=== PATIENT | male | born 1935 | race Caucasian/White ===

== ENCOUNTER 2016-12-24 14:43 | Inpatient (IN) | payer MEDICARE ==
--- NOTE | 2016-12-24 14:35 | CT ---
EXAMINATION TYPE: CT abdomen pelvis wo con DATE OF EXAM: 12/24/2016 HISTORY: LLQ pain, history of prostate CA CT DLP: 469.1 mGycm. Automated Exposure Control for Dose Reduction was Utilized. TECHNIQUE: CT scan of the abdomen and pelvis is performed without oral or IV contrast. COMPARISON: NONE FINDINGS: Within the limitations of a non-contrast study, the following observations are made. LUNG BASES: There is bibasilar atelectatic change with some Limited consolidation in the left lung ba se not excluded. LIVER/GB: There is gallstone suspected in the neck measuring 1.0 cm on coronal image 38. Gallbladder has ill-defined surrounding fluid and fat stranding. Acute cholecystitis needs to BE considered. Ther e is no suspicious intrahepatic or extra hepatic biliary dilatation. PANCREAS: No significant abnormality is seen. SPLEEN: No significant abnormality is seen. ADRENALS: No significant abnormality is seen. KIDNEYS: There are several small nonobstructing renal calculi seen bilaterally. I estimates 6-10 scat tered calculi in the right kidney measuring 4 mm or smaller in size. There are 2-4 calculi scattered throughout the left kidney measuring 2 mm or smaller in size. There is mild left-sided pyelocaliectas is without hydroureter. There is mild perinephric fat stranding and fluid surrounding the right kidney and mild to moderate p erinephric fat stranding surrounding left kidney. This finding is nonspecific and could be related to chronic medical renal disease, underlying left-sided renal infection is not excluded. Clinical corre lation is advised. No hydroureter or obstructing ureter calculi are identified bilaterally. BOWEL: Evaluation of the bowel is suboptimal secondary to lack of enteric contrast. Cannot exclude du odenal lipoma measuring up to 1.8 cm third portion of duodenum on coronal image 39. There is no suspi cious small or large bowel dilatation. There is mild wall thickening in the left colon, this is likel y product of poor distention. There are diverticula in the sigmoid colon. There is no CT evidence for acute diverticulitis. GENITAL ORGANS: Surgical clips are seen in the pelvis from total prostatectomy . LYMPH NODES: No greater than 1cm abdominal or pelvic lymph nodes are appreciated. OSSEOUS STRUCTURES: Multilevel moderate to severe spurring throughout the thoracolumbar spine is pres ent. Spine is straightened. Spinal canal effacement or stenosis at L3-L4 and L4-L5 levels is noted. OTHER: There is mild to moderate calcified plaque of aorta extending into pelvic branch vessels. IMPRESSION: 1. A 1 cm stone in gallbladder neck, CT findings suggestive of acute cholecystitis. Surgical consulta tion advised. 2. Small nonobstructing renal calculi bilaterally. Perinephric fat stranding bilaterally is nonspecif ic finding, in the appropriate clinical setting given it is slightly more prominent in the left kidne y -- renal infection or pyelonephritis is not excluded. Clinical and urine lab correlation advised.
[2016-12-24] MEDS ORDERED: metroNIDAZOLE-NS PMX 500 MG in SALINE 1 100ML.BAG IVPB STA (15:07)
[2016-12-24 15:45] LABS: Amorphous Sediment,Urine Occasional /hpf; Appearance,Urine Cloudy (Clear); Bilirubin,Urine 2+ (Negative); Glucose,Urine (UA) Negative (Negative); Ketones,Urine Negative (Negative); Leukocyte Esterase,Urine Negative (Negative); Mucus,Urine Occasional /hpf; Nitrite,Urine Negative (Negative); Particle Count 18885; Protein,Urine 1+ (Negative); Squamous Epithelial Cell,Urine 1 /hpf (0-4); UA Billing (MACRO vs. MICRO) MICRO; WBC,Urine 3 /hpf (0-5)
[2016-12-24 15:54] LABS: INR 1.2 (<1.2); Partial Thromboplastin Time 24.3 sec (22.0-30.0); Prothrombin Time 12.1 sec (9.0-12.0)
[2016-12-24 15:55] LABS: Calcium 8.4 mg/dL (8.4-10.2); Potassium 3.6 mmol/L (3.5-5.1); Total Bilirubin 6.6 mg/dL (0.2-1.3); Total Protein 6.4 g/dL (6.3-8.2)
[2016-12-24 15:57] LABS: Aty Lym Flag Slight; CHCM 34.6; HCT 44.5 % (39.0-53.0); HDW 2.42; HGB 15.2 gm/dL (13.0-17.5); MCH 31.7 pg (25.0-35.0); MCHC 34.1 g/dL (31.0-37.0); MCV 93.1 fL (80.0-100.0); Mean Platelet Volume 6.7; RBC 4.78 m/uL (4.30-5.90); WBC 13.9 k/uL (3.8-10.6); WBC (Perox) 13.07
--- NOTE | 2016-12-24 16:02 | US ---
EXAMINATION TYPE: US abdomen limited DATE OF EXAM: 12/24/2016 COMPARISON: CT in PACS CLINICAL HISTORY: Pain. Abnormal CT scan EXAM MEASUREMENTS: Liver Length: 15.7 cm Gallbladder Wall: 0.9 cm CBD: 0.9 cm Right Kidney: 9.9 x 5.9 x 5.4 cm Pancreas: Obscured by bowel gas Liver: Limited visualization due to overlying bowel gas, visualized portions appear wnl Gallbladder: Thickened wall with pericholecystic fluid. Stones visualized within gallbladder neck, l argest measuring 1.1 cm Evidence for sonographic Silverman's sign: No CBD: Dilated, distal portion obscured by bowel gas Right Kidney: Echogenic foci visualized measuring 0.4 cm Common bile duct is measured 9 mm by technologist but does not appear suspiciously dilated on recent CT. Stones in gallbladder neck are felt confirmed with shadowing 1.1 cm focus due to location and nec k they are suboptimally evaluated. Motility cannot be visualized. IMPRESSION: Ultrasound findings correlate with CT findings worrisome for acute cholecystitis as detai led above. Surgical consultation advised.
[2016-12-24 16:11] LABS: Add Differential Manual Differential
[2016-12-24 16:14] LABS: Band Neutrophils % 1 %; Manual Review Performed; Nucleated Red Blood Cells 0 /100 WBC (0-0); RBC Morphology Normal; Total Cells Counted 100
[2016-12-24] MEDS ORDERED: ONDANSETRON 4 MG/2 ML VIAL IVP PRN (16:14)
[2016-12-24] MEDS ORDERED: MORPHINE SULFATE 4 MG/ML SYRINGE IV PRN (16:14)
[2016-12-24] MEDS ORDERED: NALOXONE 0.4 MG/ML 1 ML VIAL IV PRN (16:14)
[2016-12-24] MEDS ORDERED: traMADol 50 MG TAB PO PRN (16:14)
--- NOTE | 2016-12-24 16:14 | ED ---
Abdominal Pain HPI - General Chief Complaint: Abdominal Pain Source: patient Mode of arrival: ambulatory Limitations: no limitations - History of Present Illness Initial Comments: Patient complains of abdominal pain. He has no nausea or vomiting. He has no chest pain. He has no back pain. Nothing makes the pain better or worse. He has pain all of the abdomen. He denies any burning on urination. He has no blood in the stool. He has no black or tarry stool. He has taken no medication for the belly pain. It has been getting worse for 2 days. - Related Data Home Medications Medication Instructions Recorded Confirmed Diltiazem Cd [Cardizem Cd] 300 mg PO DAILY 12/24/16 12/24/16 Hydrochlorothiazide [Hydrodiuril] 12.5 mg PO DAILY 12/24/16 12/24/16 Levothyroxine Sodium [Synthroid] 75 mcg PO DAILY 12/24/16 12/24/16 Losartan Potassium [Cozaar] 50 mg PO DAILY 12/24/16 12/24/16 metroNIDAZOLE [Flagyl] 500 mg PO TID 12/24/16 12/24/16 Allergies Allergy/AdvReac Type Severity Reaction Status Date / Time No Known Allergies Allergy Verified 12/24/16 14:49 Review of Systems ROS Statement: Those systems with pertinent positive or pertinent negative responses have been documented in the HPI. ROS Other: All systems not noted in ROS Statement are negative. Past Medical History Past Medical History: Cancer, Hyperlipidemia, Hypertension, Thyroid Disorder Additional Past Medical History / Comment(s): prostate Past Surgical History: Prostate Surgery Past Psychological History: No Psychological Hx Reported Smoking Status: Never smoker Past Alcohol Use History: Occasional Past Drug Use History: Unable to Obtain General Exam Limitations: no limitations General appearance: alert, in no apparent distress Head exam: Present: atraumatic, normocephalic, normal inspection Eye exam: Present: normal appearance, PERRL, EOMI. Absent: scleral icterus, conjunctival injection, periorbital swelling ENT exam: Present: normal exam, mucous membranes moist Neck exam: Present: normal inspection. Absent: tenderness, meningismus, lymphadenopathy Respiratory exam: Present: normal lung sounds bilaterally. Absent: respiratory distress, wheezes, rales, rhonchi, stridor Cardiovascular Exam: Present: regular rate, normal rhythm, normal heart sounds. Absent: systolic murmur, diastolic murmur, rubs, gallop, clicks GI/Abdominal exam: Present: soft, tenderness, normal bowel sounds. Absent: distended, guarding, rebound, rigid Extremities exam: Present: normal inspection, full ROM, normal capillary refill. Absent: tenderness, pedal edema, joint swelling, calf tenderness Back exam: Present: normal inspection Neurological exam: Present: alert, oriented X3, CN II-XII intact Psychiatric exam: Present: normal affect, normal mood Skin exam: Present: warm, dry, intact, normal color. Absent: rash Course Vital Signs 12/24/16 14:45 Temperature 99.8 F H Pulse Rate 76 Respiratory 18 Rate Blood Pressure 112/61 O2 Sat by Pulse 98 Oximetry Medical Decision Making - Medical Decision Making Patient complains of abdominal pain. He has no elevated white count. Ultrasound of the right upper quadrant is positive for cholecystitis. I ordered IV antibiotics. Patient will be admitted to surgery. - Lab Data Result diagrams: 12/24/16 15:30 12/24/16 15:30 Lab Results 12/24/16 12/24/16 12/24/16 Range/Units 15:30 15:30 15:30 WBC 13.9 H (3.8-10.6) k/uL RBC 4.78 (4.30-5.90) m/uL Hgb 15.2 (13.0-17.5) gm/dL Hct 44.5 (39.0-53.0) % MCV 93.1 (80.0-100.0) fL MCH 31.7 (25.0-35.0) pg MCHC 34.1 (31.0-37.0) g/dL RDW 13.0 (11.5-15.5) % Plt Count 144 L (150-450) k/uL PT (9.0-12.0) sec INR (<1.2) APTT (22.0-30.0) sec Sodium 137 (137-145) mmol/L Potassium 3.6 (3.5-5.1) mmol/L Chloride 102 (98-107) mmol/L Carbon Dioxide 22 (22-30) mmol/L Anion Gap 13 mmol/L BUN 50 H (9-20) mg/dL Creatinine 1.70 H (0.66-1.25) mg/dL Est GFR (MDRD) Af Amer 47 (>60 ml/min/1.73 sqM) Est GFR (MDRD) Non-Af 39 (>60 ml/min/1.73 sqM) Glucose 106 H (74-99) mg/dL Plasma Lactic Acid [place] 1.5 (0.7-2.0) mmol/L Calcium 8.4 (8.4-10.2) mg/dL Total Bilirubin 6.6 H (0.2-1.3) mg/dL AST 33 (17-59) U/L ALT 132 H (21-72) U/L Alkaline Phosphatase 226 H (38-126) U/L Troponin I (0.000-0.034) ng/mL Total Protein 6.4 (6.3-8.2) g/dL Albumin 3.2 L (3.5-5.0) g/dL Lipase 1187 H (23-300) U/L Urine Color Urine Appearance (Clear) Urine pH (5.0-8.0) Ur Specific [place] (1.001-1.035) Urine Protein (Negative) Urine Glucose (UA) (Negative) Urine Ketones (Negative) Urine Blood (Negative) Urine Nitrite (Negative) Urine Bilirubin (Negative) Urine Urobilinogen (<2.0) mg/dL Ur Leukocyte Esterase (Negative) Urine WBC (0-5) /hpf Ur Squamous Epith Cells (0-4) /hpf Amorphous Sediment (None) /hpf Hyaline Casts (0-2) /lpf Urine Mucus (None) /hpf 12/24/16 12/24/16 12/24/16 Range/Units 15:30 15:30 15:30 WBC (3.8-10.6) k/uL RBC (4.30-5.90) m/uL Hgb (13.0-17.5) gm/dL Hct (39.0-53.0) % MCV (80.0-100.0) fL MCH (25.0-35.0) pg MCHC (31.0-37.0) g/dL RDW (11.5-15.5) % Plt Count (150-450) k/uL PT 12.1 H (9.0-12.0) sec INR 1.2 H (<1.2) APTT 24.3 (22.0-30.0) sec Sodium (137-145) mmol/L Potassium (3.5-5.1) mmol/L Chloride (98-107) mmol/L Carbon Dioxide (22-30) mmol/L Anion Gap mmol/L BUN (9-20) mg/dL Creatinine (0.66-1.25) mg/dL Est GFR (MDRD) Af Amer (>60 ml/min/1.73 sqM) Est GFR (MDRD) Non-Af (>60 ml/min/1.73 sqM) Glucose (74-99) mg/dL Plasma Lactic Acid [place] (0.7-2.0) mmol/L Calcium (8.4-10.2) mg/dL Total Bilirubin (0.2-1.3) mg/dL AST (17-59) U/L ALT (21-72) U/L Alkaline Phosphatase (38-126) U/L Troponin I <0.012 (0.000-0.034) ng/mL Total Protein (6.3-8.2) g/dL Albumin (3.5-5.0) g/dL Lipase (23-300) U/L Urine Color [facility] Urine Appearance Cloudy (Clear) Urine pH 5.0 (5.0-8.0) Ur Specific [place] 1.020 (1.001-1.035) Urine Protein 1+ H (Negative) Urine Glucose (UA) Negative (Negative) Urine Ketones Negative (Negative) Urine Blood Trace H (Negative) Urine Nitrite Negative (Negative) Urine Bilirubin 2+ H (Negative) Urine Urobilinogen 2.0 (<2.0) mg/dL Ur Leukocyte Esterase Negative (Negative) Urine WBC 3 (0-5) /hpf Ur Squamous Epith Cells 1 (0-4) /hpf Amorphous Sediment Occasional H (None) /hpf Hyaline Casts 40 H (0-2) /lpf Urine Mucus Occasional H (None) /hpf 12/24/16 16:13 Twelve-lead EKG is obtained, interpreted by me as showing ventricular rate 66 bpm, normal [place] interval and QRS complexes, no ST elevation or depression, interpreted by me as normal sinus rhythm. Disposition Clinical Impression: Cholecystitis Disposition: ADMITTED IP TO THIS [facility] Condition: Fair Referrals: Manuel Lemus MD [Primary Care Provider] - 1-2 days Time of Disposition: 16:14
--- NOTE | 2016-12-24 16:49 | P.GSHP ---
History of Present Illness H&P Date: 12/24/16 Chief Complaint: Abdominal pain The patient's a 81-year-old man who had some abdominal discomfort starting Wednesday. It was worse yesterday so his family to came into the urgent care center. He had a computed tomography scan scheduled today. His daughter thought he looked yellow and brought him into the emergency department. Workup showed evidence of cholelithiasis and cholecystitis. His bilirubin level is elevated. He's having minimal discomfort now. No nausea no vomiting. He hasn' t had episodes of this in the past. No tea-colored urine or acholic stool. In the stool - Review of Systems All systems: negative Past Medical History Past Medical History: Cancer, Hyperlipidemia, Hypertension, Thyroid Disorder Additional Past Medical History / Comment(s): prostate Past Surgical History: Prostate Surgery Past Psychological History: No Psychological Hx Reported Smoking Status: Never smoker Past Alcohol Use History: Occasional Past Drug Use History: Unable to Obtain Medications and Allergies Home Medications Medication Instructions Recorded Confirmed Type Diltiazem Cd [Cardizem Cd] 300 mg PO DAILY 12/24/16 12/24/16 History Hydrochlorothiazide [Hydrodiuril] 12.5 mg PO DAILY 12/24/16 12/24/16 History Levothyroxine Sodium [Synthroid] 75 mcg PO DAILY 12/24/16 12/24/16 History Losartan Potassium [Cozaar] 50 mg PO DAILY 12/24/16 12/24/16 History metroNIDAZOLE [Flagyl] 500 mg PO TID 12/24/16 12/24/16 History Allergies Allergy/AdvReac Type Severity Reaction Status Date / Time No Known Allergies Allergy Verified 12/24/16 14:49 Surgical - Exam Osteopathic Statement: *. No significant issues noted on an osteopathic structural exam other than those noted in the History and Physical/Consult. Vital Signs Temp Pulse Resp BP Pulse Ox 99.8 F H 76 18 112/61 98 12/24/16 14:45 12/24/16 14:45 12/24/16 14:45 12/24/16 14:45 12/24/16 14:45 - General well developed, well nourished, no distress - Eyes normal ocular movement, icteric - ENT normal mucosa - Neck trachea midline - Respiratory normal expansion, clear to auscultation - Cardiovascular Rhythm: regular - Abdomen Abdomen: soft, tender (Very minimal right upper quadrant), bowel sounds, surgical scars (Lower midline scar from previous prostatectomy) - Integumentary other (Icteric) - Psychiatric oriented to time, oriented to person, oriented to place, speech is normal, memory intact Results - Labs 12/24/16 15:30 12/24/16 15:30 Abnormal Lab Results - Last 24 Hours (Table) 12/24/16 12/24/16 12/24/16 Range/Units 15:30 15:30 15:30 WBC 13.9 H (3.8-10.6) k/uL Plt Count 144 L (150-450) k/uL Neutrophils # (Manual) 10.70 H (1.3-7.7) k/uL Monocytes # (Manual) 1.39 H (0-1.0) k/uL PT 12.1 H (9.0-12.0) sec INR 1.2 H (<1.2) BUN 50 H (9-20) mg/dL Creatinine 1.70 H (0.66-1.25) mg/dL Glucose 106 H (74-99) mg/dL Total Bilirubin 6.6 H (0.2-1.3) mg/dL ALT 132 H (21-72) U/L Alkaline Phosphatase 226 H (38-126) U/L Albumin 3.2 L (3.5-5.0) g/dL Lipase 1187 H (23-300) U/L Urine Protein (Negative) Urine Blood (Negative) Urine Bilirubin (Negative) Amorphous Sediment (None) /hpf Hyaline Casts (0-2) /lpf Urine Mucus (None) /hpf 12/24/16 Range/Units 15:30 WBC (3.8-10.6) k/uL Plt Count (150-450) k/uL Neutrophils # (Manual) (1.3-7.7) k/uL Monocytes # (Manual) (0-1.0) k/uL PT (9.0-12.0) sec INR (<1.2) BUN (9-20) mg/dL Creatinine (0.66-1.25) mg/dL Glucose (74-99) mg/dL Total Bilirubin (0.2-1.3) mg/dL ALT (21-72) U/L Alkaline Phosphatase (38-126) U/L Albumin (3.5-5.0) g/dL Lipase (23-300) U/L Urine Protein 1+ H (Negative) Urine Blood Trace H (Negative) Urine Bilirubin 2+ H (Negative) Amorphous Sediment Occasional H (None) /hpf Hyaline Casts 40 H (0-2) /lpf Urine Mucus Occasional H (None) /hpf Diabetes panel 12/24/16 Range/Units 15:30 Sodium 137 (137-145) mmol/L Potassium 3.6 (3.5-5.1) mmol/L Chloride 102 (98-107) mmol/L Carbon Dioxide 22 (22-30) mmol/L BUN 50 H (9-20) mg/dL Creatinine 1.70 H (0.66-1.25) mg/dL Glucose 106 H (74-99) mg/dL Calcium 8.4 (8.4-10.2) mg/dL AST 33 (17-59) U/L ALT 132 H (21-72) U/L Alkaline Phosphatase 226 H (38-126) U/L Total Protein 6.4 (6.3-8.2) g/dL Albumin 3.2 L (3.5-5.0) g/dL Calcium panel 12/24/16 Range/Units 15:30 Calcium 8.4 (8.4-10.2) mg/dL Albumin 3.2 L (3.5-5.0) g/dL Pituitary panel 12/24/16 Range/Units 15:30 Sodium 137 (137-145) mmol/L Potassium 3.6 (3.5-5.1) mmol/L Chloride 102 (98-107) mmol/L Carbon Dioxide 22 (22-30) mmol/L BUN 50 H (9-20) mg/dL Creatinine 1.70 H (0.66-1.25) mg/dL Glucose 106 H (74-99) mg/dL Calcium 8.4 (8.4-10.2) mg/dL Adrenal panel 12/24/16 Range/Units 15:30 Sodium 137 (137-145) mmol/L Potassium 3.6 (3.5-5.1) mmol/L Chloride 102 (98-107) mmol/L Carbon Dioxide 22 (22-30) mmol/L BUN 50 H (9-20) mg/dL Creatinine 1.70 H (0.66-1.25) mg/dL Glucose 106 H (74-99) mg/dL Calcium 8.4 (8.4-10.2) mg/dL Total Bilirubin 6.6 H (0.2-1.3) mg/dL AST 33 (17-59) U/L ALT 132 H (21-72) U/L Alkaline Phosphatase 226 H (38-126) U/L Total Protein 6.4 (6.3-8.2) g/dL Albumin 3.2 L (3.5-5.0) g/dL - Imaging CT scan - abdomen: report reviewed US - abdomen: report reviewed Assessment and Plan (1) Cholelithiasis Status: Acute (2) Jaundice Status: Acute (3) Cholecystitis Status: Acute Plan: He does have gallstones. His common bile duct is dilated at 9 mm along with the elevated bilirubin of 6.6. We will repeat his bilirubin in the morning. If it still significantly elevated we'll have the patient undergo ERCP prior to surgery. The condition was discussed with the patient and his family. We'll repeat labs in the morning with further recommendations to follow.
[2016-12-24 17:34] VITALS: BMI 25.0
[2016-12-24] MEDS: FAMOTIDINE 20 MG TAB PO SCH (20:06)
[2016-12-24] MEDS: DEXTROSE 5%-0.45% NACL 1,000 ML IV SCH (21:24)
[2016-12-25] MEDS: DILTIAZEM CD 300 MG CAP.ER.24H PO SCH (08:26)
[2016-12-25] MEDS: LOSARTAN 50 MG TAB PO SCH (08:26)
--- NOTE | 2016-12-25 09:20 | P.CONS ---
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 No history of this type of pain. No history of hepatitis, jaundice, liver disorders, or EtOH abuse. Denies hematemesis hematochezia melena fever or chills. White count 13.9. Platelet 144. Hemoglobin 15.2. INR 1.2. BUN 50. Creatinine 1.7. Total bilirubin 6.6. AST 33. ALT 132. Alkaline phosphatase 226. Lipase 1187. CT abdomen and pelvis gallstone suspected in the neck 1 cm with ill-defined surrounding fluid and fat stranding. No suspicious intrahepatic or extrahepatic biliary dilatation. Ultrasound abdomen and thickened gallbladder wall with pericholecystic fluid 0.9 cm. CBD 0.9 cm. Gallbladder neck stone measuring 1.1 cm. Review of Systems Constitutional: Denies fever, chills, sweats, weight gain, or loss. HEENT: Negative for migraines, blurred vision or loss, earaches, drainage, tinnitus, oral mucosal lesions, dysphagia, or odynophagia. Cardiac: Hyperlipidemia. Hypertension. Negative for chest pain, arrhythmias, or palpitation. Respiratory: Negative for shortness of breath, hemoptysis, cough, or sputum production. Gastrointestinal: See HPI for pertinent findings. Genitourinary: Prostate carcinoma. Negative for hematuria, urgency, frequency, polyuria, dysuria, or penile discharge. Musculoskeletal: Negative for muscle aches, swelling, arthritis, and arthralgias. Neurologic: Negative for stroke or TIA. Endocrine: Negative for thyroid problems. Skin: Negative for rash or itching. Psychiatric: Negative history for depression and anxiety All systems: negative (See HPI) Past Medical History Past Medical History: Cancer, Hyperlipidemia, Hypertension, Thyroid Disorder Additional Past Medical History / Comment(s): prostate History of Any Multi-Drug Resistant Organisms: None Reported Past Surgical History: Prostate Surgery Past Anesthesia/Blood Transfusion Reactions: No Reported Reaction Past Psychological History: No Psychological Hx Reported Smoking Status: Never smoker Past Alcohol Use History: Occasional Past Drug Use History: Unable to Obtain - Past Family History Father Family Medical History: No Reported History Mother Family Medical History: No Reported History Medications and Allergies Home Medications Medication Instructions Recorded Confirmed Type Diltiazem Cd [Cardizem Cd] 300 mg PO DAILY 12/24/16 12/24/16 History Hydrochlorothiazide [Hydrodiuril] 12.5 mg PO DAILY 12/24/16 12/24/16 History Levothyroxine Sodium [Synthroid] 75 mcg PO DAILY 12/24/16 12/24/16 History Losartan Potassium [Cozaar] 50 mg PO DAILY 12/24/16 12/24/16 History metroNIDAZOLE [Flagyl] 500 mg PO TID 12/24/16 12/24/16 History Allergies Allergy/AdvReac Type Severity Reaction Status Date / Time No Known Allergies Allergy Verified 12/24/16 14:49 Physical Exam Vitals: Vital Signs Temp Pulse Pulse Resp BP BP Pulse Ox 12/25/16 07:00 98.3 F 60 12 152/69 96 12/25/16 01:31 97.7 F 65 16 130/69 95 12/25/16 00:00 16 12/24/16 20:09 97.8 F 71 16 133/68 96 12/24/16 20:00 16 12/24/16 17:42 66 12/24/16 17:24 96.8 F L 66 154/70 97 12/24/16 16:24 97 F L 66 18 115/61 97 12/24/16 14:45 99.8 F H 76 18 112/61 98 Intake and Output 12/24/16 12/25/16 12/25/16 22:59 06:59 14:59 Intake Total 180 1230 Balance 180 1230 Intake: IV 80 640 Dextrose 5%-0.45% NaCl 1, 80 640 000 ml @ 80 mls/hr IV . [id number] [facility] Rx#:[id number] Oral 100 590 Other: Voiding Method Toilet Urinal # Voids 2 Weight 83.915 kg General appearance: The patient is alert, oriented, in no acute distress. Jaundice. HET: Head is normocephalic and atraumatic. Pupils are equal and reactive. Sclerae icterus. Oropharynx is clear without lesions. Neck: Supple without lymphadenopathy. Trachea midline. Heart: S1 S2. Regular rate and rhythm. Lungs: No crackles or wheezes are heard. Abdomen: Soft, mild tenderness midepigastrium right upper quadrant, nondistended with bowel sounds. No peritoneal signs. No palpable organomegaly or masses. Extremities: Normal skin color and turgor. No cyanosis, rash, ulceration, clubbing, or edema. Radial and pedal pulses are 2/4 bilaterally. Neurological: No focal deficits. Strength and sensation are grossly intact. Results CBC & Chem 7: 12/24/16 15:30 12/24/16 15:30 Labs: Abnormal Lab Results - Last 24 Hours (Table) 12/24/16 12/24/16 12/24/16 Range/Units 15:30 15:30 15:30 WBC 13.9 H (3.8-10.6) k/uL Plt Count 144 L (150-450) k/uL Neutrophils # (Manual) 10.70 H (1.3-7.7) k/uL Monocytes # (Manual) 1.39 H (0-1.0) k/uL PT 12.1 H (9.0-12.0) sec INR 1.2 H (<1.2) BUN 50 H (9-20) mg/dL Creatinine 1.70 H (0.66-1.25) mg/dL Glucose 106 H (74-99) mg/dL Total Bilirubin 6.6 H (0.2-1.3) mg/dL ALT 132 H (21-72) U/L Alkaline Phosphatase 226 H (38-126) U/L Albumin 3.2 L (3.5-5.0) g/dL Lipase 1187 H (23-300) U/L Urine Protein (Negative) Urine Blood (Negative) Urine Bilirubin (Negative) Amorphous Sediment (None) /hpf Hyaline Casts (0-2) /lpf Urine Mucus (None) /hpf 12/24/16 Range/Units 15:30 WBC (3.8-10.6) k/uL Plt Count (150-450) k/uL Neutrophils # (Manual) (1.3-7.7) k/uL Monocytes # (Manual) (0-1.0) k/uL PT (9.0-12.0) sec INR (<1.2) BUN (9-20) mg/dL Creatinine (0.66-1.25) mg/dL Glucose (74-99) mg/dL Total Bilirubin (0.2-1.3) mg/dL ALT (21-72) U/L Alkaline Phosphatase (38-126) U/L Albumin (3.5-5.0) g/dL Lipase (23-300) U/L Urine Protein 1+ H (Negative) Urine Blood Trace H (Negative) Urine Bilirubin 2+ H (Negative) Amorphous Sediment Occasional H (None) /hpf Hyaline Casts 40 H (0-2) /lpf Urine Mucus Occasional H (None) /hpf CT scan - abdomen: report reviewed (Dr. Evangelista) US - abdomen: report reviewed (Dr. Evangelista) Assessment and Plan (1) Acute gallstone pancreatitis Status: Acute (2) Cholelithiasis Status: Acute (3) Jaundice Narrative/Plan: Obstructive jaundice secondary to suspected choledocholithiasis Status: Acute Plan: 1. Repeat morning chemistries if lipase improved and bilirubin relatively unchanged we'll proceed with ERCP. Hepatitis panel. Supportive measures. General surgery following. The front man has discussed the risks, benefits and alternative therapies for the above-mentioned procedure and for both sedation/analgesia as well as necessary blood product administration, if indicated, as they pertain to this patient. The patient has indicated understanding and acceptance of the risks and procedures discussed. Thank you for this kind referral and the opportunity to participate in the care of your patient. This consultation was discussed with Dr. Cross. The impression and plan of care have been directed as dictated.
[2016-12-25 09:31] LABS: ALT 88 U/L (21-72); AST 24 U/L (17-59); Alkaline Phosphatase 179 U/L (38-126); Anion Gap 9 mmol/L; Bilirubin, Delta 1.9 mg/dL (0.0-0.2); Blood Urea Nitrogen 28 mg/dL (9-20); Calcium 7.8 mg/dL (8.4-10.2); Carbon Dioxide 23 mmol/L (22-30); Chloride 105 mmol/L (98-107); Glucose 103 mg/dL (74-99); Non-African American GFR(MDRD) >60 (>60 ml/min/1.73 sqM); Potassium 3.1 mmol/L (3.5-5.1); Sodium 137 mmol/L (137-145); Total Bilirubin 4.3 mg/dL (0.2-1.3); Total Protein 5.6 g/dL (6.3-8.2)
--- NOTE | 2016-12-25 10:22 | P.PN ---
Progress Note - Text The patients LFT's are improving. Will proceed with laparoscopic cholecystectomy with intraoperative cholangiogram. If cholangiogram shows retained CBD stones, he can have a postop ERCP. The procedure, risks and complications were discussed with the patient. Questions encouraged and answered.
[2016-12-25] MEDS ORDERED: ONDANSETRON 4 MG/2 ML VIAL IVP ONE ×3 (11:12→12:56)
[2016-12-25] MEDS ORDERED: DEXAMETHASONE SOD PHOSPHATE 10 MG/ML 1 ML VIAL IV ONE (11:14)
[2016-12-25] MEDS ORDERED: LACTATED RINGERS 1,000 ML IV ONE ×2 (11:14→12:25)
[2016-12-25] MEDS ORDERED: LIDOCAINE 1% INJ 10MG/ML (20 ML MDV) ONE (11:29)
[2016-12-25] MEDS ORDERED: NEOSTIGMINE 1 MG/ML 10 ML VIAL ONE (11:29)
[2016-12-25] MEDS ORDERED: SUCCINYLCHOLINE CHLORIDE VIAL 200 MG/10 ML VIAL IV ONE (11:29)
[2016-12-25] MEDS ORDERED: MIDAZOLAM 2 MG/2 ML VIAL ONE (11:29)
[2016-12-25] MEDS ORDERED: GLYCOPYRROLATE 0.2 MG/ML 2 ML VIAL ONE (11:29)
[2016-12-25] MEDS ORDERED: fentaNYL (PF) 50 MCG/ML 2 ML AMP ONE (11:29)
[2016-12-25] MEDS ORDERED: ePHEDrine SULFATE/0.9% NACL/PF 50 MG/5 ML SYRINGE IV ONE (11:29)
[2016-12-25] MEDS ORDERED: PROPOFOL 10 MG/ML 20 ML VIAL IV ONE (11:29)
[2016-12-25] MEDS ORDERED: ROCURONIUM BROMIDE 10 MG/ML 10 ML VIAL IV ONE (11:29)
[2016-12-25] MEDS ORDERED: SODIUM CHLORIDE 0.9% 50 ML with ceFAZolin 2,000 MG IV ONE ×2 (11:41)
[2016-12-25] MEDS ORDERED: BUPIVACAIN-EPI 0.5%-1:200,000 30 ML VIAL SQ ONE (11:52)
[2016-12-25] MEDS ORDERED: HYDROcodone/APAP 5-325MG 1 EACH TAB PO PRN ×2 (12:29)
--- NOTE | 2016-12-25 12:34 | P.OP ---
Date of Procedure: 12/25/16 Preoperative Diagnosis: Acute cholecystitis with elevated liver function test, cholelithiasis Postoperative Diagnosis: Same Procedure(s) Performed: Laparoscopic cholecystectomy with intraoperative cholangiogram Implants: Anesthesia: KATA Surgeon: Aicha Reed Estimated Blood Loss (ml): 100 Pathology: other Condition: stable Disposition: PACU Indications for Procedure: The patient presented with jaundice and ultrasound suggestive of cholelithiasis with cholecystitis. His liver function tests were elevated but had dropped nicely and he was pain-free this morning. Decision was to do a intraoperative cholangiogram with ERCP if there is signs of a retained common bile duct stone Operative Findings: Gallbladder edema. Large and small bowel were otherwise normal where they were seen. The intraoperative cholangiogram did show good flow into the duodenum. There was a slight change near the ampulla. No definitive stone was seen this could be due to passing a stone this also could be the bifurcation with the pancreatic duct. Monitor her his liver function tests postoperatively and if they don't normalize quickly have him get a postoperative ERCP Description of Procedure: The patient's taken the operative suite where he is prepped and draped in the usual sterile manner under general endotracheal anesthetic. A supraumbilical incision was made. The fascia was grasped and incised. The peritoneum was incised. A finger sweep was carried out. A balloon trocar was inserted and pneumoperitoneum was established with CO2 gas. Sites are chosen for accessory trochars needs are placed through small skin incisions. The abdominal and pelvic contents were examined with findings as described above. Letter is grasped and retracted superiorly. Deangelo's pouch is grasped and retracted laterally. The cystic duct is dissected free. It's clipped on the medial aspect and then a small enterotomy was made. A cholangiogram catheter was threaded and secured in place with a clip. Intraoperative cholangiogram was then performed with findings as described above. The cholangiogram catheter and clip were removed. The cystic duct was then doubly clipped on the medially side and transected. A Endoloop was placed up further secured in place. The cystic artery was dissected free was triply clipped and cut the gallbladder is then dissected free from the liver bed. His placed into a specimen retrieval bag. The liver bed is reexamined. There is a small bleeding arterial noted which is controlled with a Ligaclip. The liver bed is cauterized's hemostatic the excess irrigant was suctioned out. The pneumoperitoneum was released. The trochars were removed. The fascia at the umbilicus was closed with Vicryl. The skin was closed with With hedy. Sterile dressings were applied. He tolerated the procedure without difficulty and was taken recovery room in satisfactory condition. According to or personnel all counts were correct.
--- NOTE | 2016-12-25 12:37 | FL ---
EXAMINATION TYPE: FL cholangiogram operative DATE OF EXAM: 12/25/2016 CLINICAL HISTORY: Acute cholecystitis TECHNIQUE: Fluoroscopy. COMPARISON: CT and ultrasound from yesterday. FINDINGS: Fluoroscopic guidance was provided during intraoperative cholangiogram procedure performed by Dr. Reed. A total of 4 seconds of fluoroscopic time was utilized during the procedure and 2 spo t intraoperative images are acquired. Images acquired confirm patency of the common bile duct without obstructing calculus. Please correlate with surgical note. IMPRESSION: As Above.
[2016-12-25] MEDS: LEVOTHYROXINE 75 MCG TAB PO SCH (15:17)
[2016-12-25] MEDS: HYDROCHLOROTHIAZIDE 12.5 MG CAP PO SCH (15:17)
[2016-12-25] MEDS: FAMOTIDINE 20 MG TAB PO SCH ×2 (15:17→20:29)
[2016-12-25] MEDS: DEXTROSE 5%-0.45% NACL 1,000 ML IV SCH ×2 (15:18→23:21)
[2016-12-25] MEDS ORDERED: Potassium Replacement Protocol 1 EACH MISC MISCELLANE PRN (20:39)
[2016-12-25] MEDS: POTASSIUM CHLORIDE 10 MEQ, LIDOCAINE 2% INJ 10 MG in SODIUM CHLORIDE 0.9% 100 ML IV SCH ×2 (21:31→22:45)
[2016-12-26] MEDS: HYDROCHLOROTHIAZIDE 12.5 MG CAP PO SCH (07:54)
[2016-12-26] MEDS: DILTIAZEM CD 300 MG CAP.ER.24H PO SCH (07:54)
[2016-12-26] MEDS: FAMOTIDINE 20 MG TAB PO SCH ×2 (07:55→20:11)
[2016-12-26] MEDS: LEVOTHYROXINE 75 MCG TAB PO SCH (07:55)
[2016-12-26] MEDS: LOSARTAN 50 MG TAB PO SCH (07:55)
[2016-12-26] MEDS: DEXTROSE 5%-0.45% NACL 1,000 ML IV SCH ×2 (07:57→16:34)
[2016-12-26 08:33] LABS: CH 33.1; HCT 37.7 % (39.0-53.0); HDW 2.41; HGB 12.9 gm/dL (13.0-17.5); MCH 32.6 pg (25.0-35.0); MCHC 34.3 g/dL (31.0-37.0); Mean Platelet Volume 7.8; RBC 3.97 m/uL (4.30-5.90); RDW 13.7 % (11.5-15.5); WBC 14.6 k/uL (3.8-10.6)
[2016-12-26 08:46] LABS: ALT 82 U/L (21-72); AST 48 U/L (17-59); Alkaline Phosphatase 170 U/L (38-126); Anion Gap 9 mmol/L; Blood Urea Nitrogen 22 mg/dL (9-20); Calcium 8.2 mg/dL (8.4-10.2); Carbon Dioxide 24 mmol/L (22-30); Chloride 102 mmol/L (98-107); Glucose 127 mg/dL (74-99); Non-African American GFR(MDRD) >60 (>60 ml/min/1.73 sqM); Potassium 4.2 mmol/L (3.5-5.1); Sodium 135 mmol/L (137-145); Total Bilirubin 2.5 mg/dL (0.2-1.3); Total Protein 5.5 g/dL (6.3-8.2)
--- NOTE | 2016-12-26 14:33 | P.PN ---
Progress Note - Text The patient states he feels better today. On exam his vital signs are stable. His abdomen soft. His incision sites are clean dry and intact. Patient's liver function tests improve. He'll have repeat LFTs performed tomorrow. If they continue to improve he may not need an ERCP.
[2016-12-27 00:43] VITALS: RESP 16
[2016-12-27] MEDS: LEVOTHYROXINE 75 MCG TAB PO SCH (05:39)
--- NOTE | 2016-12-27 09:20 | P.PN ---
Progress Note - Text The patient feels well. He wishes to go home today. His liver function tests from yesterday show improvement overall. On exam is lesser stable. His evidence soft. Incision sites clean and intact. Patiently discharged home today. He'll follow-up Dr. Reed next week.
[2016-12-27 09:40] VITALS: BP 147/70; TEMP 97.4
[2016-12-27] MEDS: DILTIAZEM CD 300 MG CAP.ER.24H PO SCH (09:40)
[2016-12-27] MEDS: FAMOTIDINE 20 MG TAB PO SCH (09:40)
[2016-12-27] MEDS: LOSARTAN 50 MG TAB PO SCH (09:41)
[2016-12-27] MEDS: HYDROCHLOROTHIAZIDE 12.5 MG CAP PO SCH (09:41)
[2016-12-27 10:46] VITALS: PULSE 56
== END 2016-12-27 13:27 | disposition home health service (06) | DRG 417 ==
LOC: EC 14:43 → 3SUR 16:14
PROVIDERS: ADMIT Surgery; ATTEND Surgery
PROC: BF14YZZ Fluoroscopy of Gallbladder, Bile Ducts and Pancreatic Ducts using Other Contrast (ICD-10-PCS; 2016-12-25)
PROC: 0FT44ZZ Resection of Gallbladder, Percutaneous Endoscopic Approach (ICD-10-PCS; principal; 2016-12-25 07:30)
DX: K80.01 Calculus of gallbladder with acute cholecystitis with obstruction (principal); K85.10 Biliary acute pancreatitis without necrosis or infection; E78.5 Hyperlipidemia, unspecified; I10 Essential (primary) hypertension; E07.9 Disorder of thyroid, unspecified; Z79.899 Other long term (current) drug therapy; Z85.9 Personal history of malignant neoplasm, unspecified
CPT/HCPCS: 36415; 74176; 74300; 76705; 80053; 81001; 82248; 83605; 83690; 84132; 84484; 85025; 85027; 85610; 85730; 86850; 86900; 86901; 88304; 93005; 96365; 99285